=== PATIENT | male | born 1970 | race Caucasian/White ===

== ENCOUNTER 2021-04-23 08:18 | Emergency (ER) | payer OTHER ==
[2021-04-23 10:26] LABS: BASOPHIL 0.7 % (0-2); EOSINOPHIL 1.2 % (0-5); HCT 46.9 % (42.0-52.0); HGB 15.9 g/dl (13.2-18.0); LYMPHOCYTE 28.7 % (15-48); MCH 28.2 pg (25.0-31.0); MCHC 33.9 g/dL (32.0-36.0); MCV 83.2 fL (78.0-100.0); MONOCYTE 6.8 % (0-12); MPV 9.2 fL (6.0-9.5); NEUTROPHIL 62.4 % (41-80); NRBC 0; PLT 297 K/uL (150-400); RBC 5.64 M/uL (4.70-6.00); RDW 13.1 % (11.5-14.0); WBC 5.6 K/uL (4.0-10.5)
[2021-04-23 10:50] LABS: BILIRUBIN NEGATIVE (NEGATIVE); BLOOD NEGATIVE Ery/uL (NEGATIVE); CLARITY CLEAR (CLEAR); COLOR YELLOW (YELLOW); GLUCOSE (U) 3+ mg/dL (NORMAL); LEUKOCYTES NEGATIVE Leu/uL (NEGATIVE); NITRITE NEGATIVE (NEGATIVE); PROTEIN NEGATIVE (NEGATIVE); SPECIFIC GRAVITY 1.025 (1.001-1.030); UROBILINOGEN 0.2 mg/dL (0.2-1.0)
[2021-04-23 11:25] LABS: ALBUMIN 3.6 g/dL (3.4-5.0); BILIRUBIN - TOTAL 0.3 mg/dL (0.2-1.0); BUN/CREAT RATIO (CALC) 24.2 RATIO; CREATININE 0.62 mg/dL (0.67-1.17); GLOBULIN (CALCULATION) 2.6 g/dL; TOTAL PROTEIN 6.2 g/dL (6.4-8.2)
== END 2021-04-23 13:33 | disposition home or self-care (01) ==
LOC: FER 08:18
PROVIDERS: Emergency Medicine
DX: K59.00 Constipation, unspecified (principal); I10 Essential (primary) hypertension; E11.9 Type 2 diabetes mellitus without complications
CPT/HCPCS: 36415; 80053; 81003; 83605; 83690; 84145; 85025; J7030; Q9967

== ENCOUNTER 2021-05-04 10:18 | Emergency (ER) | payer OTHER ==
[~2021-05-04] VITALS: Ht 167.6 cm; Wt 72.6 kg
[2021-05-04 10:51] LABS: BILIRUBIN 3+ mg/dL (NEGATIVE); BLOOD NEGATIVE Ery/uL (NEGATIVE); CLARITY CLEAR (CLEAR); COLOR YELLOW (YELLOW); GLUCOSE (U) 1+ mg/dL (NORMAL); LEUKOCYTES NEGATIVE Leu/uL (NEGATIVE); NITRITE NEGATIVE (NEGATIVE); PROTEIN NEGATIVE (NEGATIVE)
[2021-05-04 10:51] LABS: BASOPHIL 0.8 % (0-2); EOSINOPHIL 1.7 % (0-5); HCT 41.3 % (42.0-52.0); HGB 14.4 g/dl (13.2-18.0); LYMPHOCYTE 17.1 % (15-48); MCH 29.1 pg (25.0-31.0); MCHC 34.9 g/dL (32.0-36.0); MCV 83.6 fL (78.0-100.0); MPV 9.2 fL (6.0-9.5); NRBC 0; PLT 255 K/uL (150-400); RBC 4.94 M/uL (4.70-6.00); RDW 13.1 % (11.5-14.0); WBC 5.2 K/uL (4.0-10.5)
[2021-05-04 11:10] LABS: ALBUMIN 4.1 g/dL (3.4-5.0); BILIRUBIN - TOTAL 5.3 mg/dL (0.2-1.0); BUN/CREAT RATIO (CALC) 26.4 RATIO; CREATININE 0.72 mg/dL (0.67-1.17); GLOBULIN (CALCULATION) 2.9 g/dL; POTASSIUM 3.9 mmol/L (3.5-5.1)
[2021-05-04 11:37] LABS: BILIRUBIN - DIRECT 4.5 mg/dL (0.00-0.20)
[2021-05-04 12:15] LABS: INR 1.09 (0.9-1.2); PROTHROMBIN TIME 13.5 SECONDS (11.8-13.4)
[2021-05-04 12:20] LABS: ACETAMINOPHEN (TYLENOL) < 2.0 ug/mL (10.0-30.0)
[2021-05-04 12:36] LABS: AMPHETAMINES NEGATIVE (NEGATIVE); BARBITURATES NEGATIVE (NEGATIVE); ECSTASY (MDMA) NEGATIVE (NEGATIVE); MARIJUANA (THC) NEGATIVE (NEGATIVE); METHADONE NEGATIVE (NEGATIVE); OPIATES NEGATIVE (NEGATIVE); OXYCODONE NEGATIVE (NEGATIVE)
[2021-05-05 02:30] LABS: ALBUMIN 4.1 g/dL (3.4-5.0); BUN/CREAT RATIO (CALC) 19.2 RATIO; CREATININE 0.52 mg/dL (0.67-1.17); GLOBULIN (CALCULATION) 3.5 g/dL; POTASSIUM 3.9 mmol/L (3.5-5.1); TOTAL PROTEIN 7.6 g/dL (6.4-8.2)
== END 2021-05-05 06:01 | disposition other institution (70) ==
LOC: FER 10:18
PROVIDERS: Emergency Medicine; Internal Medicine
DX: K72.00 Acute and subacute hepatic failure without coma (principal); I10 Essential (primary) hypertension; E11.9 Type 2 diabetes mellitus without complications; Z79.84 Long term (current) use of oral hypoglycemic drugs; Z79.899 Other long term (current) drug therapy; Z20.822 Contact with and (suspected) exposure to COVID-19
CPT/HCPCS: 36415; 80053; 80305; 81003; 82140; 82150; 82248; 83615; 83690; 85025; 85610; 96372; C9113; G0480; J0132; J1650; J2060; J7060; J7070; Q9967; U0002

== ENCOUNTER 2021-05-31 16:36 | Emergency (ER) | payer OTHER ==
[~2021-05-31 16:36] MED LIST: GLUCOTROL10 MG PO; METFORMIN HCL500 MG PO; PEPCID AC20 MG PO; PRINIVIL20 MG PO
[2021-05-31 17:29] LABS: BILIRUBIN NEGATIVE (NEGATIVE); BLOOD NEGATIVE Ery/uL (NEGATIVE); CLARITY CLEAR (CLEAR); COLOR YELLOW (YELLOW); GLUCOSE (U) 3+ mg/dL (NORMAL); LEUKOCYTES NEGATIVE Leu/uL (NEGATIVE); NITRITE NEGATIVE (NEGATIVE); PROTEIN NEGATIVE (NEGATIVE); UROBILINOGEN 0.2 mg/dL (0.2-1.0)
[2021-05-31 17:54] LABS: BASOPHIL 0.9 % (0-2); EOSINOPHIL 0.4 % (0-5); HCT 40.4 % (42.0-52.0); HGB 13.7 g/dl (13.2-18.0); MCH 28.5 pg (25.0-31.0); MCHC 33.9 g/dL (32.0-36.0); MONOCYTE 4.9 % (0-12); MPV 9.4 fL (6.0-9.5); NEUTROPHIL 77.5 % (41-80); NRBC 0; PLT 350 K/uL (150-400); RBC 4.81 M/uL (4.70-6.00); RDW 12.6 % (11.5-14.0); WBC 6.7 K/uL (4.0-10.5)
[2021-05-31 18:09] LABS: ALBUMIN 3.9 g/dL (3.4-5.0); BILIRUBIN - TOTAL 0.6 mg/dL (0.2-1.0); CREATININE 0.59 mg/dL (0.67-1.17); GLOBULIN (CALCULATION) 3.1 g/dL; POTASSIUM 4.2 mmol/L (3.5-5.1)
[2021-05-31] MEDS ORDERED: MIRALAX17 GM PO (19:53)
[2021-05-31] MEDS ORDERED: COLACE100 M1 PO (19:53)
== END 2021-05-31 20:21 | disposition home or self-care (01) ==
LOC: FER 16:36
PROVIDERS: Emergency Medicine
DX: K59.00 Constipation, unspecified (principal); E11.9 Type 2 diabetes mellitus without complications; I10 Essential (primary) hypertension
CPT/HCPCS: 36415; 80053; 81003; 82150; 83690; 85025; Q9967

== ENCOUNTER 2021-07-28 07:22 | Emergency (ER) | payer OTHER ==
[~2021-07-28 07:22] MED LIST changes: +COLACE100 M1 PO; +MIRALAX17 GM PO
[2021-07-28 08:24] LABS: HCT 42.7 % (42.0-52.0); HGB 14.2 g/dl (13.2-18.0); LYMPHOCYTE 23.8 % (15-48); MCH 27.9 pg (25.0-31.0); MCHC 33.3 g/dL (32.0-36.0); MCV 83.9 fL (78.0-100.0); MPV 9.3 fL (6.0-9.5); NEUTROPHIL 64.8 % (41-80); NRBC 0; PLT 294 K/uL (150-400); RBC 5.09 M/uL (4.70-6.00); RDW 12.6 % (11.5-14.0)
[2021-07-28 08:35] LABS: BILIRUBIN - TOTAL 0.4 mg/dL (0.2-1.0); BUN/CREAT RATIO (CALC) 28.8 RATIO; CREATININE 0.73 mg/dL (0.67-1.17); GLOBULIN (CALCULATION) 2.7 g/dL; POTASSIUM 4.5 mmol/L (3.5-5.1); TOTAL PROTEIN 6.7 g/dL (6.4-8.2)
[2021-07-28 08:38] LABS: BILIRUBIN NEGATIVE (NEGATIVE); BLOOD NEGATIVE Ery/uL (NEGATIVE); CLARITY CLEAR (CLEAR); COLOR YELLOW (YELLOW); GLUCOSE (U) 1+ mg/dL (NORMAL); LEUKOCYTES NEGATIVE Leu/uL (NEGATIVE); NITRITE NEGATIVE (NEGATIVE); PROTEIN 1+ mg/dL (NEGATIVE); SPECIFIC GRAVITY 1.015 (1.001-1.030); UROBILINOGEN 0.2 mg/dL (0.2-1.0)
[2021-07-28 08:44] LABS: MUCOUS TRACE
[2021-07-28] MEDS ORDERED: BENTYL10 MG PO (10:49)
[2021-07-28] MEDS ORDERED: ONDANSETRON ODT4 MG PO (10:49)
== END 2021-07-28 11:00 | disposition home or self-care (01) ==
LOC: FER 07:22
PROVIDERS: Emergency Medicine
DX: R10.31 Right lower quadrant pain (principal); I10 Essential (primary) hypertension; E11.9 Type 2 diabetes mellitus without complications; Z79.82 Long term (current) use of aspirin; Z79.84 Long term (current) use of oral hypoglycemic drugs; Z79.899 Other long term (current) drug therapy
CPT/HCPCS: 36415; 80053; 81001; 84145; 85025; J1170; J2405; J7030

== ENCOUNTER 2021-11-06 01:31 | Emergency (ER) | payer OTHER ==
[~2021-11-06 01:31] MED LIST changes: +BENTYL10 MG PO; +ONDANSETRON ODT4 MG PO
[2021-11-06 02:30] LABS: BASOPHIL 0.5 % (0-2); EOSINOPHIL 0.4 % (0-5); HGB 14.4 g/dl (13.2-18.0); LYMPHOCYTE 27.7 % (15-48); MCH 27.9 pg (25.0-31.0); MCHC 33.5 g/dL (32.0-36.0); MCV 83.2 fL (78.0-100.0); MONOCYTE 5.4 % (0-12); MPV 8.8 fL (6.0-9.5); NEUTROPHIL 65.5 % (41-80); NRBC 0; PLT 315 K/uL (150-400); RBC 5.17 M/uL (4.70-6.00); RDW 13.6 % (11.5-14.0); WBC 9.5 K/uL (4.0-10.5)
[2021-11-06 02:46] LABS: ALBUMIN 3.9 g/dL (3.4-5.0); BILIRUBIN - TOTAL 0.2 mg/dL (0.2-1.0); BUN/CREAT RATIO (CALC) 21.4 RATIO; CREATININE 0.7 mg/dL (0.67-1.17); GLOBULIN (CALCULATION) 2.9 g/dL; POTASSIUM 4.1 mmol/L (3.5-5.1); TOTAL PROTEIN 6.8 g/dL (6.4-8.2)
== END 2021-11-06 03:57 | disposition home or self-care (01) ==
LOC: FER 01:31
PROVIDERS: Emergency Medicine
DX: R10.11 Right upper quadrant pain (principal)
CPT/HCPCS: 36415; 80053; 83690; 85025; J1885; J7030